=== PATIENT | male | born 1950 | race Caucasian/White ===

== ENCOUNTER → 2016-04-29 | Outpatient (CLI) | payer BC ==
[~2016-04-29] MED LIST: ALLO300T2; ALPR0.254; LOSA1TAB29; OXYC-284; TRAM50TA2
== END | disposition home or self-care (01) ==
LOC: HKI 10:52
PROVIDERS: ATTEND Orthopaedic Surgery
DX: T84.090A Other mechanical complication of internal right hip prosthesis, initial encounter (principal); T84.091A Other mechanical complication of internal left hip prosthesis, initial encounter
CPT/HCPCS: G0463

== ENCOUNTER → 2016-09-14 | Outpatient (CLI) | payer BC | END | disposition home or self-care (01) | LOC: HKI 09:30 | PROVIDERS: ATTEND Orthopaedic Surgery | DX: Z01.818 Encounter for other preprocedural examination (principal); Z96.643 Presence of artificial hip joint, bilateral | CPT/HCPCS: G0463 ==

== ENCOUNTER 2016-09-22 11:52 | Inpatient (IN) | payer BC, MEDICARE ==
[~2016-09-22] VITALS: Ht 180.3 cm; Wt 106.0 kg
[2016-09-22] VITALS (17 sets, daily range): BP systolic 135–189; BP diastolic 63–104; PULSE 54–65; RESP 10–18; Ht 180.3 cm; Wt 106.0 kg
[~2016-09-22 11:52] MED LIST changes: +BUPIVACAINE LIPOSOME/PF 266 MG/20 ML VIAL INFIL ONE; +CELECOXIB 400 MG PO X1 DOSE PO ONE; +ETOMIDATE 20 MG INJ ONE; +EXPAREL NOTE (BUPIVICAINE LIPOSOMAL) XX SCH; +LACTATED RINGER'S 1,000 ML IV SCH; +PAIN COCKTAIL - VANCOMYCIN IRR ONE; +PREGABALIN 300 MG PO X1 PO ONE; +PROPOFOL 200 MG INJ ONE; +SOD CHLORIDE 0.9% IV ONE; +TRANEXAMIC ACID 1,020 MG in SOD CHLORIDE 0.9% 100 ML IVPB ONE; +TRANEXAMIC ACID IV ONE; +VANCOMYCIN 1 GM/NS 250 ML X1 BEFORE INCISION IVPB ONE; +oxyCODONE (CR) 10 MG TAB [oxyCONTIN] X1 DOSE PO ONE; +traMADOL 50 MG TAB X 1 DOSE PO ONE
[2016-09-22] MEDS: traMADol 50 MG TAB PO SCH ×2 (12:00→17:44)
[2016-09-22] MEDS ORDERED: ZOLP10TA PO (13:04)
[2016-09-22] MEDS ORDERED: ALPR0.25 PO (13:04)
[2016-09-22] MEDS ORDERED: ATOR10TA65 PO (13:05)
[2016-09-22] MEDS ORDERED: ALLO300T2 PO (13:05)
[2016-09-22] MEDS ORDERED: SODIUM CL BACTERIOSTATIC 30 ML INJ ONE (13:17)
[2016-09-22] MEDS ORDERED: TOBRAMYCIN 1.2 GM POWDER ONE (13:17)
[2016-09-22] MEDS ORDERED: POLYMYXIN B 500000 UNIT INJ ONE (13:17)
[2016-09-22] MEDS ORDERED: BACITRACIN 50000 UNITS INJ ONE (13:20)
--- NOTE | 2016-09-22 13:33 | HPN ---
Date/Time of Note Date/Time of Note DATE: 09/22/16 TIME: 13:32 Interval H&P Admission Note Pt. seen H&P reviewed: No system changes No change from H&P on 09/14/16 by CARMINE Cruz MD Sep 22, 2016 13:32
[2016-09-22] MEDS ORDERED: NEOSTIGMINE 3 MG/3 ML SYRINGE ONE (13:57)
[2016-09-22] MEDS ORDERED: PROPOFOL 20 ML ONE (13:57)
[2016-09-22] MEDS ORDERED: FENTAnyl 50 MCG/ML VIAL ONE (13:58)
[2016-09-22] MEDS ORDERED: MIDAZOLAM 1 MG/ML 2 ML INJ ONE (13:58)
[2016-09-22] MEDS ORDERED: GLYCOPYRROLATE 0.4 MG INJ ONE (13:58)
[2016-09-22] MEDS ORDERED: CEFAZOLIN 1 GM INJ ONE (13:58)
[2016-09-22] MEDS ORDERED: ROCURONIUM 50 MG INJ ONE (13:58)
[2016-09-22] MEDS ORDERED: ONDANSETRON 4 MG INJ ONE (13:59)
[2016-09-22] MEDS ORDERED: DEXAMETHASONE 4 MG/ML 1 ML INJ ONE (13:59)
[2016-09-22] MEDS ORDERED: MIDAZOLAM 1 MG/ML 2 ML INJ IV PRN (15:00)
[2016-09-22] MEDS ORDERED: FENTAnyl 50 MCG/ML VIAL IV PRN ×3 (15:00)
[2016-09-22] MEDS ORDERED: OXYCODONE/ACETAMINOPHEN (5/325) TAB PO PRN ×2 (15:00)
[2016-09-22] MEDS ORDERED: hydrALAzine 20 MG INJ IV PRN (15:00)
[2016-09-22] MEDS ORDERED: TRIMETHOBENZAMIDE 100 MG/ML VIAL IM PRN (15:00)
[2016-09-22] MEDS ORDERED: DIPHENHYDRAMINE 50 MG INJ IV PRN (15:00)
[2016-09-22] MEDS ORDERED: MEPERIDINE 25 MG INJ IV PRN (15:00)
[2016-09-22] MEDS ORDERED: EPHEDrine SULFATE 50 MG/5 ML SYG IV PRN (15:00)
[2016-09-22] MEDS ORDERED: HYDROmorphONE (0.2 MG/ML) 10ML SYG IV PRN ×3 (15:00)
[2016-09-22] MEDS ORDERED: ONDANSETRON 4 MG INJ IV PRN ×2 (15:00→17:30)
[2016-09-22] MEDS ORDERED: LABETALOL HCL 20MG INJ IV PRN (15:00)
[2016-09-22] MEDS: VANCOMYCIN 1 GM INJ ONE ×2 (15:20→15:21)
--- NOTE | 2016-09-22 16:36 | RADRPT ---
PROCEDURE: Intraoperative imaging of the right hip. CLINICAL INDICATION: Right hip pain. Intraoperative. TECHNIQUE: 5 images of the right hip were obtained in the operating room with orally equipment. N o radiologist was in attendance. COMPARISON: 01/01/2016. FINDINGS: Images demonstrate bilateral total hip arthroplasties. IMPRESSION: 1. Satisfactory intraoperative imaging of the right hip. RPTAT: QQ .Gildardo Colon MD, MD Date Time Electronically viewed and signed by .Gildardo Colon MD, on 09/22/2016 16:36 .R/
--- NOTE | 2016-09-22 17:14 | PN ---
Date/Time of Note Date/Time of Note DATE: 09/22/16 TIME: 17:12 Assessment/Plan Lines/Catheters IV Catheter Type (from Nrsg): Peripheral IV Assessment/Plan Assessment/Plan Stable In PACU, s/p revision right HARRIS -continue Ancef x 3 days until final culture results -pain meds as needed -ASA/SCDs for DVT prophylaxis -OOB with PT -posterior hip precautions -check AM labs -monitor drain -d/c clay in AM XR of the right hip is pending at this time Subjective 24 Hr Interval Summary Stable in PACU. Denies pain. Moving all extremities. Exam/Review of Systems Vital Signs Vitals Intake and Output 09/21/16 09/21/16 09/22/16 15:00 23:00 07:00 Intake Total 0 ml Balance 0 ml Exam Free Text/Dictation Hemovac: minimal Dressing dry Incision clean, dry, and intact without redness or drainage 5/5 Quadriceps, Tibialis Anterior, EHL, Gastroc, Soleus, Peroneals Normal sensation Palpable DT/PT, CR <2 sec No distal edema DELANEY PEACOCK PA-C Sep 22, 2016 17:13
--- NOTE | 2016-09-22 17:27 | OPR ---
Date/Time of Note Date/Time of Note DATE: 09/22/16 TIME: 17:14 Operative Report Procedure Description DATE: 09/22/2016 PREOPERATIVE DAGNOSIS: Mechanical complications right [id number] total hip arthroplasty POSTOPERATIVE DIAGNOSIS: Mechanical complications right [id number] total hip arthroplasty OPERATION PERFORMED: Revision right total hip arthroplasty. SURGEON: Carmine Jon MD ASSISTANT IN NURSING: Gabe Gonzales PA-C COMPONENTS USED: DePuy size 58/40 neutral Ultrex polyethylene liner, 40+8.5 ceramic head with a titanium inner sleeve ANESTHESIA: Spinal plus general endotracheal intubation. ESTIMATED BLOOD LOSS: 300 cc INTRAVENOUS FLUIDS: 2000 cc crystalloid SPECIMENS: Femoral head. DRAINS: Hemovac x1. COMPLICATIONS: None. DISPOSITION: The patient tolerated the procedure well and was taken to the recovery room in stable condition. INDICATIONS: The patient is a 66-year-old gentleman who underwent a previous [id number] right total hip arthroplasty. He has had elevated cobalt and chromium levels and I feel he would benefit from a revision to convert it to ceramic on polyethylene liner. I explained that the components appeared well fixed but that there was a possibility of needing to revise the stem and/or acetabular component if I felt there was any malpositioning of the components. The risks, benefits, and alternatives of the procedure were explained in detail to the patient. I explained the risks of the surgery to include, but not be limited to, bleeding and possible need for blood transfusion; infections; pain; stiffness; neurovascular injury with possible numbness, weakness, and/or paralysis anywhere from the hip down to the toes; fracture, instability, or dislocation; leg length inequality; wear and/or loosening of the prosthesis and possible need for future revision; blood clots and pulmonary embolism; and anesthetic complications such as heart attack, stroke, GI bleed, pneumonia, and/ or . Ample time was allowed for the patient to ask questions, all of which were addressed and answered. The patient understood the risks involved and wished to proceed. Informed consent was signed prior to the procedure. PROCEDURE: The patient's right hip was initialed with a marking pen in the preoperative area to identify the correct operative site. The patient was brought to the operating room and transferred from the [facility] to the operating table where a spinal anesthesia was administered. The patient was then anesthetized and intubated. A Davis catheter was placed. A timeout was performed to confirm that the [] side was the correct operative site. The patient was given 1 g of vancomycin and 2 g of Ancef within one hour prior to the procedure. The patient was turned to the lateral decubitus position with the operative side up. An axillary roll was placed under the chest wall. The patient was secured onto the pegboard, and all bony prominences were well padded. The operative hip and lower extremity were prepped and draped in the usual sterile fashion. The previous posterolateral scar was excised and the dissection was then carried down through subcutaneous tissue and fat with sharp dissection. The iliotibial band and gluteus liang muscle fibers were bluntly split. The posterior soft tissue sleeve was taken down off the posterior aspect of the greater trochanter and tagged with #2 FiberWire. There was heterotopic ossification in the soft tissues which was excised with electrocautery and a rondure. The sciatic nerve was palpated and protected. The quadratus femoris was released for optimal visualization as was the insertion of the gluteus liang tendon. The posterior capsule had been released and the synovial fluid was normal in color and consistency and swab for aerobic and anaerobic culture x 4. There was no purulent component. The femoral head was dislocated from the acetabular component. The head was disimpacted from the trunnion. There was a fair amount of metal trunnionosis which was debrided and cleaned. Anterior fibrous tissue was debrided to create a pocket for the trunnion. Retractors were placed around the acetabulum. The acetabular component appeared well fixed and well-positioned with approximately 45 of abduction and 20 of anteversion. The metal liner was removed by placing a small osteotome and the tab in the metal liner was able to be dislodged and removed. The acetabular component remains well fixed. At this point the debris around the inner aspect of the acetabular shell was removed and irrigated. A new 58/40 neutral Ultrex polyethylene liner was opened and impacted into the acetabulum and set flush circumferentially. Attention was turned towards the femur. The femoral component was well fixed. The trunnion had approximately 20-25 of anteversion relative to the tibia pointing towards the ceiling. A trial 40+8.5 head was placed on the trunnion and then reduced into the acetabulum. The hip was taken through range of motion and was quite stable. The hip had 110 of flexion. At 90 of flexion and neutral abduction the hip to 85 of internal rotation with no posterior impingement or anterior instability. In the position of sleep the hip had 85 of internal rotation with no posterior impingement or anterior instability. The Ran[place] sign showed a combined forward flexion 45. The hip came to full extension with no posterior impingement or anterior instability. The crosstable AP pelvis was obtained showing the components to be in good position and leg lengths and offset to be equal. At this point the trial was dislocated the trunnion was irrigated and dried and the real 40+8.5 ceramic head with a titanium in her sleeve was opened and impacted onto the trunnion and reduced into the acetabulum. The hip had the same range of motion and stability as with the trials At this point the soft tissues around the hip were infiltrated a mixture of half percent bupivacaine, 8 mg of Duramorph, 300 mcg of epinephrine, 500 mg of vancomycin, 30 mg of Toradol, 100 mcg of clonidine, 50 mL of normal saline, and 266 mg of liposomal bupivacaine. The hip was then irrigated with Betadine saline and then antibiotic saline pulsatile lavage. Stimulan beads were mixed with tobramycin and vancomycin and placed in the deep portion of the wound. The posterior capsule and short external rotators were repaired back to the greater trochanter through drill holes with #2 FiberWire.. A Hemovac drain was placed in the deep portion of the wound and brought out the anterolateral thigh.The iliotibial band was repaired with a running #2 Stratafix suture. The gluteus liang muscle fascia was repaired with a running #1 Vicryl. The deep fat layer was irrigated and closed with 2-0 Stratafix, the subcutaneous layer closed with 3-0 Vicryl, and jennifer on the skin. Skin edges were sealed with Dermabond. The drain was secured with 3-0 nylon. The sponge and needle counts were correct at the end of the case. The wound was covered with an occlusive dressing. The patient was awakened, extubated, and taken to the recovery room in stable condition. An business development assistant surgeon was necessary in the integral part of the procedure for positioning of the extremity, preparation of the patient before and after the surgical intervention. CARMINE OJN MD Sep 22, 2016 17:27
[2016-09-22] MEDS ORDERED: DIPHENHYDRAMINE 25 MG CAP PO PRN (17:30)
[2016-09-22] MEDS ORDERED: NACL 0.9% 3 ML SYG IV SCH (17:30)
[2016-09-22] MEDS ORDERED: ASPIRIN (EC) 325 MG TAB PO ONE (17:30)
[2016-09-22] MEDS ORDERED: BISACODYL 10 MG SUPP PR PRN (17:30)
[2016-09-22] MEDS ORDERED: NA PHOSPHATE/BIPHOS 133 ML ENEMA PR PRN (17:30)
[2016-09-22] MEDS ORDERED: HYDROmorphONE 1 MG/ML SYG IV PRN (17:30)
[2016-09-22 17:32] LABS: ADD UMIC YES; UR ASCORBIC ACID 20 mg/dL (NEGATIVE); UR BILIRUBIN (Dip) NEGATIVE (NEGATIVE); UR BLOOD (Dip) 1+ mg/dL (NEGATIVE); UR CLARITY SLIGHTLY CLOUDY (CLEAR); UR COLOR YELLOW (YELLOW); UR GLUCOSE (Dip) NEGATIVE (NEGATIVE); UR KETONES (Dip) NEGATIVE (NEGATIVE); UR LEUKOCYTE ESTERASE (Dip) NEGATIVE Leu/ul (NEGATIVE); UR NITRITE (Dip) NEGATIVE (NEGATIVE); UR RBC 10 /HPF (0-5); UR TOTAL PROTEIN (Dip) 1+ mg/dl (NEGATIVE); UR UROBILINOGEN (Dip) NEGATIVE (NEGATIVE)
[2016-09-22] MEDS: CEFAZOLIN 2 GM/50 ML (PMX) 50 ML IVPB SCH (17:35)
[2016-09-22 17:44] LABS: HEMOGLOBIN 13.7 g/dl (14.0-18.0)
--- NOTE | 2016-09-22 17:56 | CONS ---
Date/Time of Note Date/Time of Note DATE: 09/22/16 TIME: 17:51 Assessment/Plan Assessment/Plan Additional Assessment/Plan 1. Doing well post op right hip replacement. 2. Hx kidney stones, will cont allopruinol 3. Hx HBP, will monitor 4. Will eval daily for signs and sxs thromboembolic dz Consultation Date/Type/Reason Admit Date/Time Sep 22, 2016 at 11:52 Date of Consultation: Sep 22, 2016 Type of Consultation: Medical Reason for Consultation Post op revision right hip surgery management of anxiety, elev chol and kidney stones Referring Provider: CARMINE JON MD Hx of Present Illness I was asked to evaluate the above post op following revision right hip revision. Pt is now in recovery Respiratory: No cough, No pleuritic pain, No shortness of breath Cardiovascular: No chest pain Gastrointestinal: no complaints Genitourinary: other (clay in palce) Musculoskeletal: bone/joint pain (mild right hip discomfort) Past Medical History Medical History: other (hx HBP, elev chol, fatty liver, kidney stones, psoriasis, L and R hip replacement) Family History Significant Family History: other (Colon cancer and cad) Social History Smoking Status: Former smoker Exam/Review of Systems Vital Signs Vitals Vital Signs Date Time Temp Pulse Resp B/P Pulse Ox O2 Delivery O2 Flow Rate FiO2 09/22/16 17:05 97.9 65 18 144/99 100 Room Air Results Result Diagram: 09/22/16 1730 Results 24 hrs Laboratory Tests Test 09/22/16 17:10 09/22/16 17:30 Urine Color YELLOW Urine Clarity SLIGHTLY CLOUDY A Urine pH 6.0 Urine Specific [place] 1.020 Urine Ketones NEGATIVE Urine Nitrite NEGATIVE Urine Bilirubin NEGATIVE Urine Urobilinogen NEGATIVE Urine Leukocyte Esterase NEGATIVE Urine Microscopic RBC 10 H Urine Microscopic WBC 2 Urine Hemoglobin 1+ H Urine Glucose NEGATIVE Urine Total Protein 1+ H Hemoglobin 13.7 L Hematocrit 42.0 Medications Medications Current Medications Miscellaneous Information 1 ea NOTE XX ; Start 09/22/16 at 08:30; Stop 09/22/16 at 20:00 Atorvastatin Calcium 10 mg 10 mg QHS PO ; Start 09/22/16 at 21:00 Lactated Ringer's (Lr) 1,000 ml @ 125 mls/hr Q8H IV ; Start 09/22/16 at 17:06 Tramadol HCl (Ultram) 50 mg Q6 PO Last administered on 09/22/16 17:44; Admin Dose 50 MG; Start 09/22/16 at 12:00; Stop 09/25/16 at 11:59 Hydromorphone HCl 1 mg 1 mg Q3H PRN IV PAIN LEVEL 8-10; Start 09/22/16 at 17:30 Cefazolin Sodium/ Dextrose (Ancef 2 Gm/50 ml (Pmx)) 50 ml @ 100 mls/hr Q8H IVPB Last administered on 09/22/16 17:35; Admin Dose 100 MLS/HR; Start 09/22/16 at 17:30; Stop 09/25/16 at 09:59 Ondansetron HCl (Zofran Inj) 4 mg Q6H PRN IV NAUSEA AND/OR VOMITING; Start 09/22 at 17:30 Bisacodyl (Dulcolax Supp) 10 mg Q12H PRN [place] CONSTIPATION; Start 09/22/16 at 17: 30 Magnesium Hydroxide (Milk Of Mag) 30 ml BID PRN PO CONSTIPATION; Start 09/22/16 at 17:30 Sodium Biphosphate/ Sodium Phosphate (Fleet Enema) 133 ml DAILY PRN [place] CONSTIPATION; Start 09/22/16 at 17:30 Docusate Sodium (Colace) 100 mg BID PO ; Start 09/22/16 at 21:00 Diphenhydramine HCl (Benadryl) 25 mg Q6H PRN PO PRURITUS; Start 09/22/16 at 17: 30 Acetaminophen/ Hydrocodone Bitart ([place] (7.5-325)) 1 tab Q4H PRN PO PAIN LEVEL 1-3; Start 09/22/16 at 17:30 Acetaminophen/ Hydrocodone Bitart ([place] (7.5-325)) 2 tab Q4H PRN PO PAIN LEVEL 4-7; Start 09/22/16 at 17:30 Aspirin (Ecotrin) 325 mg BID PO ; Start 09/23/16 at 09:00 Pantoprazole (Protonix Tab) 40 mg BID@06,18 PO ; Start 09/22/16 at 18:00 RENY NAVARRO MD Sep 22, 2016 17:56
[2016-09-22] MEDS ORDERED: ALPRAZOLAM 0.5 MG TAB PO PRN (18:00)
--- NOTE | 2016-09-22 18:00 | RADRPT ---
PROCEDURE: XR Pelvis. CLINICAL INDICATION: Pelvic pain. Postop. TECHNIQUE: Single AP view of the pelvis. COMPARISON: Intraoperative imaging done earlier the same day. FINDINGS: There are bilateral total hip arthroplasties which appears satisfactory. Right sided lateral skin s taples and surgical drains are noted. Antibiotic beads are also present at the operative site on th e right. A Davis catheter is present. Cerclage wires and lateral plate are present on the left in the proximal femur. There is no lytic or blastic lesion. IMPRESSION: 1. Satisfactory postoperative appearance of both hips. RPTAT: QQ .Gildardo Colon MD, MD Date Time Electronically viewed and signed by .Gildardo Colon MD, on 09/22/2016 18:00 .R/
--- NOTE | 2016-09-22 18:00 | RADRPT ---
PROCEDURE: XR Right Hip. CLINICAL INDICATION: Right hip pain. Postop. TECHNIQUE: Single frontal view. COMPARISON: Intraoperative imaging done earlier the same day. FINDINGS: There is a right hip total arthroplasty. This appears satisfactory with no fracture, dislocation or loosening. There is no lytic lesion. Right lateral skin jennifer and surgical drain are noted. Antibiotic beads are also present at the s urgical site. IMPRESSION: 1. Satisfactory postoperative appearance of the right hip. RPTAT: QQ .Gildardo Colon MD, Date Time Electronically viewed and signed by .Gildardo Colon MD, on 09/22/2016 18:00 .R/
[2016-09-22 18:19] LABS: CALCIUM 8.8 mg/dl (8.4-10.2); CREATININE 0.83 mg/dl (0.61-1.24)
[2016-09-22] MEDS: PANTOPRAZOLE (EC) 40 MG TAB PO SCH (18:46)
[2016-09-22] MEDS: HYDROCODONE/APAP (7.5/325) TAB PO PRN (19:46)
[2016-09-22] MEDS: DOCUSATE SODIUM 100 MG CAP PO SCH (20:27)
[2016-09-22] MEDS: LACTATED RINGER'S 1,000 ML IV SCH (20:27)
[2016-09-22] MEDS: ATORVASTATIN 10 MG TAB PO SCH (20:28)
[2016-09-22] MEDS ORDERED: TRANEXAMIC ACID 1,060 MG in SOD CHLORIDE 0.9% 100 ML IVPB ONE ×2 (20:30→23:30)
[2016-09-23] VITALS: BP 147/70; PULSE 65; RESP 18
[2016-09-23 00:18] VITALS: BP 144/89; RESP 18
[2016-09-23] MEDS: LACTATED RINGER'S 1,000 ML IV SCH ×3 (01:06→19:00)
[2016-09-23] MEDS: CEFAZOLIN 2 GM/50 ML (PMX) 50 ML IVPB SCH ×3 (01:56→18:16)
[2016-09-23 05:00] VITALS: BP 141/81; PULSE 60; RESP 18
[2016-09-23 05:07] LABS: HEMATOCRIT 35.4 % (42.0-52.0); HEMOGLOBIN 11.6 g/dl (14.0-18.0)
[2016-09-23 05:35] LABS: CALCIUM 8.5 mg/dl (8.4-10.2); CREATININE 0.79 mg/dl (0.61-1.24)
[2016-09-23] MEDS: PANTOPRAZOLE (EC) 40 MG TAB PO SCH ×2 (05:42→18:16)
[2016-09-23] MEDS: traMADol 50 MG TAB PO SCH ×5 (05:44→23:57)
--- NOTE | 2016-09-23 08:25 | PN ---
Date/Time of Note Date/Time of Note DATE: 09/23/16 TIME: 08:23 Assessment/Plan Lines/Catheters IV Catheter Type (from Nrsg): Peripheral IV Davis in Place (from Nrsg): Yes Assessment/Plan Assessment/Plan Stable POD #1, s/p revision right HARRIS -continue Ancef until final culture results -pain meds as needed -ASA/SCDs for DVT prophylaxis -posterior hip precautions -OOB with PT -monitor drain -check AM labs -d/c planning. Will plan to go home upon discharge Subjective 24 Hr Interval Summary No acute overnight events. Having mild pain. Did not start PT yesterday. Cultures are pending at this time. VSS, afebrile. Will go home upon discharge. Exam/Review of Systems Vital Signs Vitals Vital Signs Date Time Temp Pulse Resp B/P Pulse Ox O2 Delivery O2 Flow Rate FiO2 09/23/16 05:00 98.6 60 18 141/81 98 09/22/16 18:34 Room Air Intake and Output 09/22/16 09/22/16 09/23/16 15:00 23:00 07:00 Intake Total 3110.6 ml 2560.6 ml Output Total 680 ml 2620 ml Balance 2430.6 ml -59.4 ml Exam Free Text/Dictation Hemovac: 500cc Dressing dry Incision clean, dry, and intact without redness or drainage 5/5 Quadriceps, Tibialis Anterior, EHL, Gastroc, Soleus, Peroneals Normal sensation Palpable DT/PT, CR <2 sec No distal edema Results Result Diagram: 09/23/16 0431 09/23/16 043 DELANEY PEACOCK PA-C Sep 23, 2016 08:25
--- NOTE | 2016-09-23 08:41 | CONS ---
Date/Time of Note Date/Time of Note DATE: 09/23/16 TIME: 08:40 Assessment/Plan Assessment/Plan Chief Complaint/Hosp Course I was asked to evaluate the above post op following revision right hip revision. Pt is now in recovery Problems: Additional Assessment/Plan 1. Doing well post op right hip replacement. 2. Hx kidney stones, will cont allopruinol 3. Hx HBP, control is adequate Consultation Date/Type/Reason Admit Date/Time Sep 22, 2016 at 11:52 Initial Consult Date 09/22/16 Type of Consultation: Medical Referring Provider: CARMINE JON MD Detailed Summary Respiratory: No cough, No shortness of breath Cardiovascular: No chest pain, No lightheadedness Gastrointestinal: no complaints Genitourinary: other (clay just removed) Musculoskeletal: bone/joint pain (mild right hip pain) Neurologic: No headache Exam/Review of Systems Vital Signs Vitals Vital Signs Date Time Temp Pulse Resp B/P Pulse Ox O2 Delivery O2 Flow Rate FiO2 09/23/16 05:00 98.6 60 18 141/81 98 09/22/16 18:34 Room Air Intake and Output 09/22/16 09/22/16 09/23/16 15:00 23:00 07:00 Intake Total 3110.6 ml 2560.6 ml Output Total 680 ml 2620 ml Balance 2430.6 ml -59.4 ml Exam Neck: No jvd Respiratory: clear to auscultation Cardiovascular: regular rate and rhythm Gastrointestinal: soft Extremities: No edema (and no calf tend bilat) Results Result Diagram: 09/23/16 0431 09/23/16 0431 Results 24 hrs Laboratory Tests Test 09/22/16 17:10 09/22/16 17:30 09/23/16 04:31 Urine Color YELLOW Urine Clarity SLIGHTLY CLOUDY A Urine pH 6.0 Urine Specific [place] 1.020 Urine Ketones NEGATIVE Urine Nitrite NEGATIVE Urine Bilirubin NEGATIVE Urine Urobilinogen NEGATIVE Urine Leukocyte Esterase NEGATIVE Urine Microscopic RBC 10 H Urine Microscopic WBC 2 Urine Hemoglobin 1+ H Urine Glucose NEGATIVE Urine Total Protein 1+ H Hemoglobin 13.7 L 11.6 L Hematocrit 42.0 35.4 L Sodium Level 143 138 Potassium Level 4.0 4.0 Chloride Level 105 100 Carbon Dioxide Level 27 26 Anion Gap 15 16 Blood Urea Nitrogen 13 12 Creatinine 0.83 0.79 Glucose Level 106 103 Calcium Level 8.8 8.5 Medications Medications Current Medications Atorvastatin Calcium 10 mg 10 mg QHS PO Last administered on 09/22/16 20:28; Admin Dose 10 MG; Start 09/22/16 at 21:00 Lactated Ringer's (Lr) 1,000 ml @ 125 mls/hr Q8H IV Last administered on 05:42; Admin Dose 125 MLS/HR; Start 09/22/16 at 17:06 Tramadol HCl (Ultram) 50 mg Q6 PO Last administered on 09/23/16 05:44; Admin Dose 50 MG; Start 09/22/16 at 12:00; Stop 09/25/16 at 11:59 Hydromorphone HCl 1 mg 1 mg Q3H PRN IV PAIN LEVEL 8-10; Start 09/22/16 at 17:30 Cefazolin Sodium/ Dextrose (Ancef 2 Gm/50 ml (Pmx)) 50 ml @ 100 mls/hr Q8H IVPB Last administered on 09/23/16 01:56; Admin Dose 100 MLS/HR; Start 09/22/16 at 17:30; Stop 09/25/16 at 09:59 Ondansetron HCl (Zofran Inj) 4 mg Q6H PRN IV NAUSEA AND/OR VOMITING; Start 09/22 at 17:30 Bisacodyl (Dulcolax Supp) 10 mg Q12H PRN [place] CONSTIPATION; Start 09/22/16 at 17: 30 Magnesium Hydroxide (Milk Of Mag) 30 ml BID PRN PO CONSTIPATION; Start 09/22/16 at 17:30 Sodium Biphosphate/ Sodium Phosphate (Fleet Enema) 133 ml DAILY PRN [place] CONSTIPATION; Start 09/22/16 at 17:30 Docusate Sodium (Colace) 100 mg BID PO Last administered on 09/22/16 20:27; Admin Dose 100 MG; Start 09/22/16 at 21:00 Diphenhydramine HCl (Benadryl) 25 mg Q6H PRN PO PRURITUS; Start 09/22/16 at 17: 30 Acetaminophen/ Hydrocodone Bitart ([place] (7.5-325)) 1 tab Q4H PRN PO PAIN LEVEL 1-3; Start 09/22/16 at 17:30 Acetaminophen/ Hydrocodone Bitart ([place] (7.5-325)) 2 tab Q4H PRN PO PAIN LEVEL 4-7 Last administered on 09/22/16 19:46; Admin Dose 2 TAB; Start 09/22/16 at 17:30 Aspirin (Ecotrin) 325 mg BID PO ; Start 09/23/16 at 09:00 Pantoprazole (Protonix Tab) 40 mg BID@06,18 PO Last administered on 09/23/16 05 :42; Admin Dose 40 MG; Start 09/22/16 at 18:00 Allopurinol (Zyloprim) 300 mg DAILY PO ; Start 09/23/16 at 09:00 Alprazolam (Xanax) 0.5 mg BID PRN PO ANXIETY Last administered on 09/23/16 01: 56; Admin Dose 0.5 MG; Start 09/22/16 at 18:00 Clonidine (Catapres) 0.1 mg TID PO Last administered on 09/22/16 20:28; Admin Dose 0.1 MG; Start 09/22/16 at 21:00 RENY NAVARRO MD Sep 23, 2016 08:41
[2016-09-23 08:53] VITALS: BP 137/77; RESP 18
[2016-09-23] MEDS: DOCUSATE SODIUM 100 MG CAP PO SCH ×2 (09:03→20:50)
[2016-09-23] MEDS: ALLOPURINOL 300 MG TAB PO SCH (09:03)
[2016-09-23] MEDS: ASPIRIN (EC) 325 MG TAB PO SCH ×2 (09:03→20:50)
[2016-09-23] MEDS: HYDROCODONE/APAP (7.5/325) TAB PO PRN ×3 (09:06→20:51)
[2016-09-23 09:51] LABS: UR RBC 6 /HPF (0-5)
[2016-09-23 11:09] LABS: ADD UMIC YES; UR ASCORBIC ACID NEGATIVE (NEGATIVE); UR BILIRUBIN (Dip) NEGATIVE (NEGATIVE); UR BLOOD (Dip) 3+ mg/dL (NEGATIVE); UR CLARITY CLEAR (CLEAR); UR COLOR COLORLESS (YELLOW); UR GLUCOSE (Dip) NEGATIVE (NEGATIVE); UR KETONES (Dip) NEGATIVE (NEGATIVE); UR LEUKOCYTE ESTERASE (Dip) NEGATIVE Leu/ul (NEGATIVE); UR NITRITE (Dip) NEGATIVE (NEGATIVE); UR SPECIFIC GRAVITY (Dip) 1.003 (1.003-1.030); UR TOTAL PROTEIN (Dip) NEGATIVE (NEGATIVE); UR UROBILINOGEN (Dip) NEGATIVE (NEGATIVE)
[2016-09-23 19:05] VITALS: BP 148/72; RESP 18
[2016-09-23] MEDS: ATORVASTATIN 10 MG TAB PO SCH (20:49)
[2016-09-23] MEDS: ALPRAZOLAM 0.5 MG TAB PO SCH (20:50)
[2016-09-23] MEDS: ZOLPIDEM 5 MG TAB PO SCH (21:50)
[2016-09-24] MEDS: LACTATED RINGER'S 1,000 ML IV SCH ×3 (01:06→17:06)
[2016-09-24 02:00] VITALS: BP 142/78; PULSE 68; RESP 18
[2016-09-24] MEDS: CEFAZOLIN 2 GM/50 ML (PMX) 50 ML IVPB SCH ×3 (02:20→17:47)
[2016-09-24 05:17] LABS: HEMATOCRIT 34.1 % (42.0-52.0); HEMOGLOBIN 11.2 g/dl (14.0-18.0)
[2016-09-24] MEDS: PANTOPRAZOLE (EC) 40 MG TAB PO SCH ×2 (05:35→17:47)
[2016-09-24] MEDS: traMADol 50 MG TAB PO SCH ×4 (05:35→23:50)
[2016-09-24 05:51] LABS: CALCIUM 8.5 mg/dl (8.4-10.2); CREATININE 0.9 mg/dl (0.61-1.24); POTASSIUM 3.7 mmol/L (3.5-5.1)
[2016-09-24 07:53] VITALS: BP 146/77; RESP 16
[2016-09-24] MEDS: ALLOPURINOL 300 MG TAB PO SCH (08:37)
[2016-09-24] MEDS: DOCUSATE SODIUM 100 MG CAP PO SCH ×2 (08:37→20:20)
[2016-09-24] MEDS: ASPIRIN (EC) 325 MG TAB PO SCH ×2 (08:37→20:20)
[2016-09-24] MEDS: HYDROCODONE/APAP (7.5/325) TAB PO PRN ×3 (08:39→22:02)
--- NOTE | 2016-09-24 10:28 | PDOCDIS ---
Discharge Instructions DIAGNOSIS Discharge Diagnosis s/p revision right HARRIS CONDITION Patient Condition: Good HOME CARE INSTRUCTIONS: Diet Instructions: RegularSpecial Diet: REGULAR ACTIVITY: Activity Restrictions: Slowly Increase Activity Rest between Activity Avoid heavy lifting Do not operate Machinery Do not operate Power Tool Avoid Heavy Housework Keep Limb Elevated Weight Bearing Bathing Restrictions: Shower FOLLOW UP/APPOINTMENTS Follow-up Plan follow up in the office on 10/03/16 OTHER ORDERS: Other Orders: S/P Posterior HARRIS Physical Therapy: Three times per week at home x 2 weeks Daily in Rehab/SNF WB STATUS: WBAT Strengthening exercises for both upper and un-operated lower extremities. 1. Gait training with front wheeled walker 2. Wide base gait, no pivot turns. 3. Abductor strengthening. 4. Quadriceps and hamstring strengthening. 5. May switch to cane in contra lateral hand 6 weeks after surgery. 6. Physical Therapy can open case if nursing is not available. 7. Ice Packs while at rest to surgical wound for 20 minutes, 3 times/day. 8. Patient requires mobile SCDs to reduce risk of developing DVT following HARRIS. Patient will use the mobile SCDs for 30 days postoperatively. Hip Precautions: no flexion beyond 90 degrees, no adduction, no internal rotation. Bathing assistance by home health aide twice weekly if Medicare patient. Occupational Therapy: Evaluation for assistive devices and ADL training. Wound Care: Keep incision dry & covered with Tegaderm until first visit with Dr. Delarosa Anticoagulation Orders: Enteric Coated Aspirin 325 mg po bid x 6 weeks from date of surgery Follow-up:Call for an appointment with Dr. Delarosa in 1 week after discharged from hospital at DME Orders: JOSH, 3-in-1 Commode, Mobile SCDs DELANEY PEACOCK PA-C Sep 24, 2016 10:27
[2016-09-24] MEDS ORDERED: HYDR-3605 PO (10:29)
[2016-09-24] MEDS ORDERED: PANT40TA4 PO (10:29)
[2016-09-24] MEDS ORDERED: ASPI325T32 PO (10:29)
[2016-09-24] MEDS ORDERED: TRAM50TA2 PO (10:29)
--- NOTE | 2016-09-24 11:04 | PN ---
Date/Time of Note Date/Time of Note DATE: 09/24/16 TIME: 11:02 Assessment/Plan Lines/Catheters IV Catheter Type (from Nrsg): Peripheral IV Davis in Place (from Nrsg): Yes Assessment/Plan Assessment/Plan Stable POD #2, s/p revision right HARRIS -continue Ancef until final culture results -pain meds as needed -ASA/SCDs -posterior hip precautions -OOB with PT -drain removed -check AM labs -dressing changed -plan for discharge home tomorrow Subjective 24 Hr Interval Summary No acute overnight events. Denies significant pain. Cultures show no growth so far. H&H stable. Making progress with PT. Exam/Review of Systems Vital Signs Vitals Vital Signs Date Time Temp Pulse Resp B/P Pulse Ox O2 Delivery O2 Flow Rate FiO2 09/24/16 07:53 97.8 72 16 146/77 95 09/22/16 18:34 Room Air Intake and Output 09/23/16 09/23/16 09/24/16 15:00 23:00 07:00 Intake Total 50 ml 2650 ml 1400 ml Output Total 1620 ml 1620 ml Balance 50 ml 1030 ml -220 ml Exam Free Text/Dictation Hemovac: 40cc Dressing dry Incision clean, dry, and intact without redness or drainage 5/5 Quadriceps, Tibialis Anterior, EHL, Gastroc, Soleus, Peroneals Normal sensation Palpable DT/PT, CR <2 sec No distal edema Results Result Diagram: 09/24/1644009/24/16440 DELANEY PEACOCK PA-C Sep 24, 2016 11:04
--- NOTE | 2016-09-24 16:01 | CONS ---
Date/Time of Note Date/Time of Note DATE: 09/24/16 TIME: 16:00 Assessment/Plan Assessment/Plan Additional Assessment/Plan R hip revision s/p septic joint 1. Doing well post op right hip replacement. 2. Hx kidney stones, will cont allopruinol 3. Hx HBP, control is adequate 4. obesity, weight loss of 120lbs intentional Consultation Date/Type/Reason Admit Date/Time Sep 22, 2016 at 11:52 Initial Consult Date 09/22/16 Type of Consultation: Medical Referring Provider: CARIMNE JON MD 24 HR Interval Summary Constitutional: improved, no complaints Exam/Review of Systems Vital Signs Vitals Vital Signs Date Time Temp Pulse Resp B/P Pulse Ox O2 Delivery O2 Flow Rate FiO2 09/24/16 07:53 97.8 72 16 146/77 95 09/22/16 18:34 Room Air Intake and Output 09/23/16 09/23/16 09/24/16 15:00 23:00 07:00 Intake Total 50 ml 2650 ml 1400 ml Output Total 1620 ml 1620 ml Balance 50 ml 1030 ml -220 ml Exam Constitutional: alert, oriented Psych: no complaints Head: atraumatic, normocephalic Eyes: nl conjunctiva Neck: non-tender, supple Respiratory: clear to auscultation, normal air movement Cardiovascular: regular rate and rhythm Gastrointestinal: soft Musculoskeletal: nl extremities to inspection Results Result Diagram: 09/24/161 09/24/16 0441 Results 24 hrs Laboratory Tests Test 09/24/16 04:41 Hemoglobin 11.2 L Hematocrit 34.1 L Sodium Level 140 Potassium Level 3.7 Chloride Level 101 Carbon Dioxide Level 30 Anion Gap 13 Blood Urea Nitrogen 13 Creatinine 0.90 Glucose Level 98 Calcium Level 8.5 Medications Medications Current Medications Atorvastatin Calcium 10 mg 10 mg QHS PO Last administered on 09/23/16 20:49; Admin Dose 10 MG; Start 09/22/16 at 21:00 Lactated Ringer's (Lr) 1,000 ml @ 125 mls/hr Q8H IV Last administered on 05:42; Admin Dose 125 MLS/HR; Start 09/22/16 at 17:06 Tramadol HCl (Ultram) 50 mg Q6 PO Last administered on 09/24/16 11:59; Admin Dose 50 MG; Start 09/22/16 at 12:00; Stop 09/25/16 at 11:59 Hydromorphone HCl 1 mg 1 mg Q3H PRN IV PAIN LEVEL 8-10; Start 09/22/16 at 17:30 Cefazolin Sodium/ Dextrose (Ancef 2 Gm/50 ml (Pmx)) 50 ml @ 100 mls/hr Q8H IVPB Last administered on 09/24/16 08:37; Admin Dose 100 MLS/HR; Start 09/22/16 at 17:30; Stop 09/25/16 at 09:59 Ondansetron HCl (Zofran Inj) 4 mg Q6H PRN IV NAUSEA AND/OR VOMITING; Start 09/22 at 17:30 Bisacodyl (Dulcolax Supp) 10 mg Q12H PRN [place] CONSTIPATION; Start 09/22/16 at 17: 30 Magnesium Hydroxide (Milk Of Mag) 30 ml BID PRN PO CONSTIPATION; Start 09/22/16 at 17:30 Sodium Biphosphate/ Sodium Phosphate (Fleet Enema) 133 ml DAILY PRN [place] CONSTIPATION; Start 09/22/16 at 17:30 Docusate Sodium (Colace) 100 mg BID PO Last administered on 09/24/16 08:37; Admin Dose 100 MG; Start 09/22/16 at 21:00 Diphenhydramine HCl (Benadryl) 25 mg Q6H PRN PO PRURITUS; Start 09/22/16 at 17: 30 Acetaminophen/ Hydrocodone Bitart ([place] (7.5-325)) 1 tab Q4H PRN PO PAIN LEVEL 1-3 Last administered on 09/24/16 15:22; Admin Dose 1 TAB; Start 09/22/16 at 17:30 Acetaminophen/ Hydrocodone Bitart ([place] (7.5-325)) 2 tab Q4H PRN PO PAIN LEVEL 4-7 Last administered on 09/23/16 20:51; Admin Dose 2 TAB; Start 09/22/16 at 17:30 Aspirin (Ecotrin) 325 mg BID PO Last administered on 09/24/16 08:37; Admin Dose 325 MG; Start 09/23/16 at 09:00 Pantoprazole (Protonix Tab) 40 mg BID@06,18 PO Last administered on 09/24/16 05 :35; Admin Dose 40 MG; Start 09/22/16 at 18:00 Allopurinol (Zyloprim) 300 mg DAILY PO Last administered on 09/24/16 08:37; Admin Dose 300 MG; Start 09/23/16 at 09:00 Clonidine (Catapres) 0.1 mg TID PO Last administered on 09/24/16 08:38; Admin Dose 0.1 MG; Start 09/22/16 at 21:00 Zolpidem Tartrate (Ambien) 10 mg HS PO Last administered on 09/23/16 21:50; Admin Dose 10 MG; Start 09/23/16 at 21:00 Alprazolam (Xanax) 0.5 mg HS PO Last administered on 09/23/16 20:50; Admin Dose 0.5 MG; Start 09/23/16 at 21:00 LISSETTE ALVARADO MD Sep 24, 2016 16:01
[2016-09-24 19:20] VITALS: BP 174/88; RESP 18
[2016-09-24] MEDS: ALPRAZOLAM 0.5 MG TAB PO SCH (20:20)
[2016-09-24] MEDS: ATORVASTATIN 10 MG TAB PO SCH (20:20)
[2016-09-24] MEDS: MAGNESIUM HYDROXIDE 30ML CUP PO PRN (20:30)
[2016-09-24] MEDS: ZOLPIDEM 5 MG TAB PO SCH (21:57)
[2016-09-24] MEDS: DOCOSANOL 2 GM CREAM TOP SCH (21:57)
[2016-09-24] MEDS: PHENOL 1.4% SOLN 180 ML BTL MT PRN (21:58)
[2016-09-25] MEDS: LACTATED RINGER'S 1,000 ML IV SCH ×2 (01:06→08:50)
[2016-09-25] MEDS: CEFAZOLIN 2 GM/50 ML (PMX) 50 ML IVPB SCH ×2 (01:50→09:30)
[2016-09-25 01:56] VITALS: BP 133/77; PULSE 75; RESP 18
[2016-09-25] MEDS: PHENOL 1.4% SOLN 180 ML BTL MT PRN ×3 (01:56→08:45)
[2016-09-25 05:40] LABS: HEMOGLOBIN 12.1 g/dl (14.0-18.0)
[2016-09-25] MEDS: PANTOPRAZOLE (EC) 40 MG TAB PO SCH (06:05)
[2016-09-25] MEDS: traMADol 50 MG TAB PO SCH (06:06)
[2016-09-25 06:13] LABS: CALCIUM 8.9 mg/dl (8.4-10.2); CREATININE 0.76 mg/dl (0.61-1.24); POTASSIUM 3.4 mmol/L (3.5-5.1)
[2016-09-25 08:22] VITALS: BP 127/69; RESP 18
[2016-09-25] MEDS: DOCOSANOL 2 GM CREAM TOP SCH ×3 (08:45→14:10)
[2016-09-25] MEDS: DOCUSATE SODIUM 100 MG CAP PO SCH (08:46)
[2016-09-25] MEDS: ALLOPURINOL 300 MG TAB PO SCH (08:46)
[2016-09-25] MEDS: MAGNESIUM HYDROXIDE 30ML CUP PO PRN (08:46)
[2016-09-25] MEDS: ASPIRIN (EC) 325 MG TAB PO SCH (08:46)
[2016-09-25] MEDS ORDERED: POTASSIUM CHLORIDE (SR) 20 MEQ TAB PO STA (09:46)
[2016-09-25] MEDS ORDERED: CEPH500C PO (10:25)
--- NOTE | 2016-09-25 10:25 | PN ---
Date/Time of Note Date/Time of Note DATE: 09/25/16 TIME: 10:22 Assessment/Plan Lines/Catheters IV Catheter Type (from Nrsg): Saline Lock Davis in Place (from Nrsg): No Assessment/Plan Assessment/Plan Stable POD #3, s/p revision right HARRIS -d/c Ancef -pain meds prn -OOB with PT -dressing changed -posterior hip precautions -plan to discharge home today -follow up in the office in 1 week Subjective 24 Hr Interval Summary No acute overnight events. Spoke with the lab and final cultures results are negative. Progressing with PT. VSS, afebrile. Exam/Review of Systems Vital Signs Vitals Vital Signs Date Time Temp Pulse Resp B/P Pulse Ox O2 Delivery O2 Flow Rate FiO2 09/25/16 08:22 98.9 72 18 127/69 94 09/22/16 18:34 Room Air Intake and Output 09/24/16 09/24/16 09/25/16 15:00 23:00 07:00 Intake Total 100 ml 1650 ml 1400 ml Output Total 1200 ml 2400 ml Balance 100 ml 450 ml -1000 ml Exam Free Text/Dictation Dressing dry Incision clean, dry, and intact without redness or drainage 5/5 Quadriceps, Tibialis Anterior, EHL, Gastroc, Soleus, Peroneals Normal sensation Palpable DT/PT, CR <2 sec No distal edema Results Result Diagram: 09/25/16 0453 09/25/16 0453 DELANEY PEACOCK PA-C Sep 25, 2016 10:24
[2016-09-25 12:17] VITALS: BP 153/82; PULSE 79
[2016-09-25] MEDS: HYDROCODONE/APAP (7.5/325) TAB PO PRN (14:21)
--- NOTE | 2016-09-25 19:56 | CONS ---
Date/Time of Note Date/Time of Note DATE: 09/25/16 TIME: 19:54 Assessment/Plan Assessment/Plan Additional Assessment/Plan R hip revision s/p septic joint 1. Doing well post op right hip replacement. Doing very well, wound care provided, pain controlled, able to work with physical therapy. Cleared for discharge by orthopedic surgery, and home health follow-up ordered. 2. Hx kidney stones, will cont allopruinol-no signs of gouty flare, continue to monitor. 3. Hx HBP, control is adequate full code 4. obesity, weight loss of 120lbs intentional Labs reviewed, pain control, medications written by primary team. Patient is stable to be discharged from medicine perspective. Consultation Date/Type/Reason Admit Date/Time Sep 22, 2016 at 11:52 Initial Consult Date 09/22/16 Type of Consultation: Medical Referring Provider: CARMINE JON MD 24 HR Interval Summary Constitutional: improved, no complaints Exam/Review of Systems Vital Signs Vitals Vital Signs Date Time Temp Pulse Resp B/P Pulse Ox O2 Delivery O2 Flow Rate FiO2 09/25/16 12:17 79 153/82 09/25/16 08:22 98.9 18 94 09/22/16 18:34 Room Air Intake and Output 09/24/16 09/24/16 09/25/16 15:00 23:00 07:00 Intake Total 100 ml 1650 ml 1400 ml Output Total 1200 ml 2400 ml Balance 100 ml 450 ml -1000 ml Exam Constitutional: alert, oriented Head: normocephalic Eyes: nl conjunctiva ENMT: nl external ears & nose Neck: supple Respiratory: clear to auscultation Cardiovascular: regular rate and rhythm Gastrointestinal: nl liver, spleen, soft Results Result Diagram: 09/25/16 0453 09/25/16 0453 Results 24 hrs Laboratory Tests Test 09/25/16 04:53 Hemoglobin 12.1 L Hematocrit 36.0 L Sodium Level 140 Potassium Level 3.4 L Chloride Level 97 Carbon Dioxide Level 31 Anion Gap 15 Blood Urea Nitrogen 13 Creatinine 0.76 Glucose Level 93 Calcium Level 8.9 LISSETTE ALVARADO MD Sep 25, 2016 19:56
== END 2016-09-25 14:45 | disposition home health service (06) | DRG 468 ==
LOC: REC 11:52 → MS1 18:28
PROVIDERS: ADMIT Orthopaedic Surgery; ATTEND Orthopaedic Surgery
PROC: 0SP909Z Removal of Liner from Right Hip Joint, Open Approach (ICD-10-PCS; 2016-09-22)
PROC: 0SUA09Z Supplement Right Hip Joint, Acetabular Surface with Liner, Open Approach (ICD-10-PCS; 2016-09-22)
PROC: 0SP90JZ Removal of Synthetic Substitute from Right Hip Joint, Open Approach (ICD-10-PCS; 2016-09-22)
PROC: 0SR904A Replacement of Right Hip Joint with Ceramic on Polyethylene Synthetic Substitute, Uncemented, Open Approach (ICD-10-PCS; principal; 2016-09-22 14:00)
DX: T84.090A Other mechanical complication of internal right hip prosthesis, initial encounter (principal); Z96.643 Presence of artificial hip joint, bilateral; I10 Essential (primary) hypertension; E78.5 Hyperlipidemia, unspecified; F41.9 Anxiety disorder, unspecified; L40.9 Psoriasis, unspecified; G47.00 Insomnia, unspecified; Y84.8 Other medical procedures as the cause of abnormal reaction of the patient, or of later complication, without mention of misadventure at the time of the procedure; Y92.009 Unspecified place in unspecified non-institutional (private) residence as the place of occurrence of the external cause; Z87.442 Personal history of urinary calculi
CPT/HCPCS: 72170; 73500; 73530; 80048; 81001; 85014; 85018; 86850; 86900; 86901; 86920; 87070; 87081; 87086; 97116; 97163; 97166; 97530; C1713; C1776; C9290; J0171; J0690; J0735; J1100; J1885; J2250; J2274; J2405; J2710; J3010; J3370; J7120

== ENCOUNTER → 2016-10-03 | Outpatient (CLI) | payer BC ==
[~2016-10-03] MED LIST changes: -ALLO300T2; +ALLO300T2 PO; -ALPR0.254; +ASPI325T32 PO; +ATOR10TA65 PO; -BUPIVACAINE LIPOSOME/PF 266 MG/20 ML VIAL INFIL ONE; -CELECOXIB 400 MG PO X1 DOSE PO ONE; +CEPH500C PO; -ETOMIDATE 20 MG INJ ONE; -EXPAREL NOTE (BUPIVICAINE LIPOSOMAL) XX SCH; +HYDR-3605 PO; -LACTATED RINGER'S 1,000 ML IV SCH; -LOSA1TAB29; -OXYC-284; -PAIN COCKTAIL - VANCOMYCIN IRR ONE; +PANT40TA4 PO; -PREGABALIN 300 MG PO X1 PO ONE; -PROPOFOL 200 MG INJ ONE; -SOD CHLORIDE 0.9% IV ONE; -TRAM50TA2; +TRAM50TA2 PO; -TRANEXAMIC ACID 1,020 MG in SOD CHLORIDE 0.9% 100 ML IVPB ONE; -TRANEXAMIC ACID IV ONE; -VANCOMYCIN 1 GM/NS 250 ML X1 BEFORE INCISION IVPB ONE; -oxyCODONE (CR) 10 MG TAB [oxyCONTIN] X1 DOSE PO ONE; -traMADOL 50 MG TAB X 1 DOSE PO ONE
--- NOTE | 2016-10-03 11:59 | PN ---
Date/Time of Note Date/Time of Note DATE: 10/03/16 TIME: 11:52 Outpatient Progress Note Chief Complaint Right hip postoperative visit HPI The patient presents today for his first postoperative evaluation. He is now 10 days status post revision right total hip arthroplasty. He underwent a head and liner exchange and is here for a follow-up. He denies any fevers or chills. He is currently taking Keflex 500 mg 4 times daily. He is having some mild discomfort after doing physical therapy but is otherwise doing well. He has been using the Tegaderm dressings while showering. He presents today for his first postoperative evaluation. Physical Exam On exam today, the patient is alert and oriented 4, and in no acute distress. He is ambulating with a cane. Exam of the incision demonstrates it to be somewhat irritated and moist secondary to the Tegaderm. He appears to have adhesive dermatitis that is localized to where the Tegaderm was placed. There is no pus or drainage noted although there is some mild blistering. The jennifer are in place. There is some mild ecchymosis. There is no significant soft tissue swelling. There is no significant pain with passive range of motion of the right hip joint. Compartments are otherwise soft. Homans sign is negative. He is neurovascularly intact distally. Allergies Coded Allergies: No Known Drug Allergy (Verified Allergy, Mild, 09/22/16) Assessment/Plan IMAGING: X-rays of the right hip are obtained today and reviewed by me. They demonstrate anatomic alignment with no fractures or dislocations identified. ASSESSMENT: 10 days status post revision right total hip arthroplasty PLAN: The jennifer were removed today and Steri-Strips were applied. He did have some superficial opening of the wound but it will be closely monitored for now. He also has some adhesive dermatitis we advised him to discontinue the Tegaderm dressings and leave the Steri-Strips on for the time being. If they fall off, he is not to replace them. He is to continue the Keflex 500 mg 4 times daily. Additionally he is to continue aspirin 325 mg twice daily for DVT prophylaxis. We will see him back for a wound recheck in 1 week. He is to call the office in the meantime if he has any concerns. Medications Home Meds Active Scripts Cephalexin* (Cephalexin*) 500 Mg Capsule, 500 MG PO Q6 for 14 Days, #56 CAP Prov:DELANEY PEACOCK PA-C 09/25/16 Hydrocodone/Acetaminophen (Hydrocodon-Acetaminoph 7.5-325) 1 Each Tablet, 1 TAB PO Q4H Y for PAIN LEVEL 1-3 for 30 Days, #60 TAB Prov:DELANEY PEACOCK PA-C 09/24/16 Pantoprazole* (Pantoprazole*) 40 Mg Tablet., 40 MG PO BID@06,18 for 40 Days, # 40 Prov:DELANEY PEACOCK PA-C 09/24/16 Tramadol HCl (Tramadol HCl) 50 Mg Tablet, 50 MG PO Q6 for 30 Days, #60 TAB Prov:DELANEY PEACOCK PA-C 09/24/16 Aspirin (Aspir-Angelika) 325 Mg Tablet.dr, 325 MG PO BID for 42 Days, #84 Prov:DELANEY PEACOCK PA-C 09/24/16 Reported Medications Atorvastatin Calcium (Atorvastatin Calcium) 10 Mg Tablet, 10 MG PO QHS, #30 TAB 09/22/16 Allopurinol* (Allopurinol*) 300 Mg Tablet, 300 MG PO DAILY, TAB 09/22/16 DELANEY PEACOCK PA-C Oct 03, 2016 11:59
--- NOTE | 2016-10-03 16:19 | RADRPT ---
PROCEDURE: XR Right hip and pelvis. CLINICAL INDICATION: Right hip pain. Pelvic pain. Postop. TECHNIQUE: Two views. Frontal pelvis and frontal right hip. COMPARISON: 09/22/2016. FINDINGS: There are bilateral total hip arthroplasties which appears satisfactory. There is no fracture, disl ocation, or loosening. Right lateral skin jennifer and surgical drain have been removed. Antibiotic beads are no longer visualized. The left hip lateral plate and cerclage wires are noted. There is no lytic lesion. The upper pelvis is not completely included on the image. IMPRESSION: 1. Satisfactory postoperative appearance of both hips. RPTAT: QQ .Gildardo Colon MD, MD Date Time Electronically viewed and signed by .Gildardo Colon MD, MD on 10/03/2016 16:18 .R/
== END | disposition home or self-care (01) ==
LOC: HKI 10:00
PROVIDERS: ATTEND Orthopaedic Surgery
DX: Z47.1 Aftercare following joint replacement surgery (principal); Z96.641 Presence of right artificial hip joint
CPT/HCPCS: 73502

== ENCOUNTER → 2016-10-10 | Outpatient (CLI) | payer BC, MEDICARE | END | disposition home or self-care (01) | LOC: HKI 09:49 | PROVIDERS: ATTEND Orthopaedic Surgery | DX: Z47.1 Aftercare following joint replacement surgery (principal); T84.090A Other mechanical complication of internal right hip prosthesis, initial encounter; Z96.641 Presence of right artificial hip joint ==

== ENCOUNTER → 2016-11-07 | Outpatient (CLI) | payer BC, MEDICARE ==
--- NOTE | 2016-11-07 16:00 | RADRPT ---
PROCEDURE: XR Right hip and pelvis. CLINICAL INDICATION: Right hip pain. Pelvic pain. Postop. TECHNIQUE: Two views. Frontal pelvis and frontal right hip. COMPARISON: 10/03/2016. FINDINGS: There are bilateral total hip arthroplasties which appears satisfactory. There is no fracture, dislo cation, or loosening. The left hip lateral plate and cerclage wires are noted. There is no lytic lesion. The upper pelvis is not completely included on the image. There are degenerative changes of the lowe r lumbar spine. IMPRESSION: 1. Satisfactory postoperative appearance of both hips. 2. No significant change from 10/03/2016. RPTAT: QQ .Gildardo Colon MD, MD Date Time Electronically viewed and signed by .Gildardo Colon MD, MD on 11/07/2016 16:00 .R/
== END | disposition home or self-care (01) ==
LOC: HKI 09:59
PROVIDERS: ATTEND Orthopaedic Surgery
DX: Z47.1 Aftercare following joint replacement surgery (principal); T84.090A Other mechanical complication of internal right hip prosthesis, initial encounter; Z96.641 Presence of right artificial hip joint
CPT/HCPCS: 73502

== ENCOUNTER → 2017-11-14 | Outpatient (CLI) | END | disposition home or self-care (01) ==

== ENCOUNTER → 2017-12-12 | Outpatient (CLI) | END | disposition home or self-care (01) ==